=== PATIENT | male | born 1955 | race Caucasian/White ===

== ENCOUNTER → 2017-08-04 | Outpatient (CLI) | payer OTHER ==
[~2017-08-04] MED LIST: ALBUTEROL0.63 MG/3
[2017-08-04 11:01] LABS: BASOPHILS # (AUTO) 0.1 (0.0-0.1); EOSINOPHILS # (AUTO) 0.2 (0.0-0.4); EOSINOPHILS % 2.1 % (0.0-6.0); HEMATOCRIT 50.7 % (38.2-49.6); HEMOGLOBIN 16.9 g/dL (14.0-18.0); LYMPHOCYTES # (AUTO) 3.5 (1.0-3.2); LYMPHOCYTES % 33.9 % (18.0-39.1); MEAN CORPUSCULAR HEMOGLOBIN 29.9 pg (28-32); MEAN CORPUSCULAR HGB CONC 33.3 g/dL (31-35); MEAN CORPUSCULAR VOLUME 89.7 fL (81-99); MONOCYTES % 9.5 % (4.4-11.3); NEUTROPHILS # (AUTO) 5.5 (2.1-6.9); NEUTROPHILS % 53.2 % (38.7-80.0); PLATELET COUNT 250 x10e3/uL (140-360); RED BLOOD COUNT 5.65 x10e6/uL (4.3-5.7); RED CELL DISTRIBUTION WIDTH 13.7 % (11.7-14.4)
== END ==
LOC: DX 12:48 → EDSTATUS 08-16 09:00
PROVIDERS: ATTEND Internal Medicine Gastroenterology
DX: Z01.818 Encounter for other preprocedural examination (principal); Z12.11 Encounter for screening for malignant neoplasm of colon; R19.5 Other fecal abnormalities; Z53.8 Procedure and treatment not carried out for other reasons
CPT/HCPCS: 36415; 85025; 93005

== ENCOUNTER → 2017-11-01 | Day surgery (SDC) | payer OTHER ==
[~2017-11-01] MED LIST changes: +LIDOCAINE HCL 2% LOCAL INJ 5 ML SDV VIAL INJ ONE; +MELATONIN3 MG PO; +MIDAZOLAM HCL 2 MG/2 ML VIAL ONE; +ONDANSETRON HCL INJ 2 MG/ML VIAL ONE; +PROPOFOL IV EMULSION 10 MG/ML 20 ML VIAL ONE
--- OUTSIDE RECORDS SUMMARY | 2017-11-02 10:00 | XMS REPORT ---
Author Author Admin, [place] Organization [facility] Address Unknown Phone Unavailable Allergies, Adverse Reactions, Alerts Allergy Name Reaction Description Start Date Severity Status Provider KEHALINA Pt states breaks out in rash Mild Active Ehsan Mcdowell MD Conditions or Problems Problem Name Problem Code Onset Date Status Entry Date Provider Comment Standard Description Annotate Hemoccult positive stool 578.1 Active Peggy Elizondo MD Blood in stool Colon cancer screening V76.51 Active Peggy Elizondo MD Screening for malignant neoplasms of colon INSOMNIA 780.52 Active Peggy Elizondo MD Insomnia, unspecified Muscle cramp 729.82 Active Peggy Elizondo MD Cramp of limb Pneumococcal 23-valent polysaccharide vaccination given V03.82 Active Peggy Elizondo MD Need for prophylactic vaccination against Streptococcus pneumoniae [pneumococcus] Smokes cigarettes; >30 pk-yrs 305.1 Active Peggy Elizondo MD Tobacco use disorder Well adult exam V70.0 Active Peggy Elizondo MD Routine general medical examination at a health care facility COPD 496 Active Peggy Elizondo MD Chronic airway obstruction, not elsewhere classified Cough 786.2 Active Peggy Elizondo MD Cough Hepatitis C 070.70 Active Peggy Elizondo MD Unspecified viral hepatitis C without hepatic coma Actinic keratosis 702.0 Active Peggy Elizondo MD Actinic keratosis Carotid stenosis 433.10 Active Peggy Eliozndo MD Occlusion and stenosis of carotid artery, without mention of cerebral infarction Screening for hepatitis V73.89 Active Peggy Elizondo MD Screening examination for other specified viral diseases Amaurosis fugax, right 362.34 Active Peggy Elizondo MD Transient retinal arterial occlusion Elevated blood pressure 796.2 Active Peggy Elizondo MD Elevated blood pressure reading without diagnosis of hypertension Lab exam V72.6 Active Peggy Elizondo MD Laboratory examination Lipid disorder screening V77.91 Active Peggy Elizondo MD Screening for lipoid disorders Screening for diabetes mellitus V77.1 Active Peggy Elizondo MD Screening for diabetes mellitus Std screening V74.5 Active Peggy Elizondo MD Screening examination for venereal disease Bronchitis 490 Active Ehsan Mcdowell MD Bronchitis , not specified as acute or chronic BMI 23.0-23.9 Active Ehsan Mcdowell MD Body Mass Index between 19-24, adult COPD 496 Active Ehsan Mcdowell MD Chronic airway obstruction, not elsewhere classified Dyspnea 786.09 Active Ehsan Mcdowell MD Other dyspnea and respiratory abnormality Tobacco abuse 305.1 Active Ehsan Mcdowell MD Tobacco use disorder Vaccine against flu/influenza V04.8 Active Ehsan Mcdowell MD Need for prophylactic vaccination and inoculation against other viral diseases Need for prophylactic vaccination with unspecified combined vaccine V06.9 Inactive Kandice FLORESN Need for prophylactic vaccination with unspecified combined vaccine Need for prophylactic vaccination with unspecified combined vaccine ICD-V06.9 Inactive Kandice FLORESN Medication List Medication Instructions Start Date Stop Date Generic Name NDC Status Provider Patient Instruction LEVOFLOXACIN 500 MG ORAL TABLET TAKE 1 TABLET BY MOUTH EVERY DAY FOR 5 DAYS LEVOFLOXACIN 32231937739 Active Peggy Elizondo MD Active RESTORIL 15 MG ORAL CAPSULE 1 by mouth nightly at bedtime as needed for insomnia TEMAZEPAM 70250000684 Active Peggy Elizondo MD Active QVAR 40 MCG/ACT INHALATION AEROSOL SOLUTION 2 puffs twice a day BECLOMETHASONE DIPROPIONATE 21644002880 Active Peggy Elizondo MD Active IPRATROPIUM BROMIDE 0.02 % INHALATION SOLUTION 0.5 mg NEB Q 6-8 hrs. IPRATROPIUM BROMIDE 80510344741 Active Peggy Elizondo MD Active ALBUTEROL SULFATE (2.5 MG/3ML) 0.083% INHALATION NEBULIZATION SOLUTION 1 vial in nebulizer every 4-6 hours as needed ALBUTEROL SULFATE 53005168155 Active Peggy Elizondo MD Active Immunizations Vaccine Administration Date Value Standard Description PEDIATRIC PNEUMOCOCCAL VACCINE ([id number]) #1 given pneumococcal conjugate vaccine, 13 valent influenza immunization (Flu Vax) has been administered given influenza virus vaccine, unspecified formulation Vital Signs Date Name Value Unit Range Description blood pressure, diastolic 72 mm[Hg] BP zimmerman blood pressure, systolic 138 mm[Hg] BP sys height E&M 72 [in_us] Bdy height pulse rate E&M 80 /min Heart rate respiratory rate E&M 14 /min Resp rate temperature E&M 98 [degF] Body temperature weight E&M 186 [lb_av] Weight Measured blood pressure, diastolic, second observation 76 mm[Hg] BP zimmerman blood pressure, diastolic 76 mm[Hg] BP zimemrman blood pressure, systolic, second observation 127 mm[Hg] BP sys blood pressure, systolic 127 mm[Hg] BP sys height E&M 72 [in_us] Bdy height pulse rate E&M 80 /min Heart rate respiratory rate E&M 20 /min Resp rate temperature E&M 98.5 [degF] Body temperature weight E&M 192.60 [lb_av] Weight Measured blood pressure, diastolic, second observation 78 mm[Hg] BP zimmerman blood pressure, diastolic 78 mm[Hg] BP zimmerman blood pressure, systolic, second observation 121 mm[Hg] BP sys blood pressure, systolic 121 mm[Hg] BP sys height E&M 72 [in_us] Bdy height pulse rate E&M 95 /min Heart rate respiratory rate E&M 20 /min Resp rate temperature E&M 98.2 [degF] Body temperature weight E&M 197 [lb_av] Weight Measured blood pressure, diastolic 67 mm[Hg] BP zimmerman blood pressure, systolic 114 mm[Hg] BP sys height E&M 72 [in_us] Bdy height pulse rate E&M 87 /min Heart rate respiratory rate E&M 23 /min Resp rate temperature E&M 98.7 [degF] Body temperature weight E&M 176.80 [lb_av] Weight Measured blood pressure, diastolic 76 mm[Hg] BP zimmerman blood pressure, systolic 121 mm[Hg] BP sys height E&M 72 [in_us] Bdy height pulse rate E&M 87 /min Heart rate pulse rate #2 72 Heart rate respiratory rate E&M 20 /min Resp rate temperature E&M 98.5 [degF] Body temperature weight E&M 177.60 [lb_av] Weight Measured blood pressure, diastolic 63 mm[Hg] BP zimmerman blood pressure, systolic 133 mm[Hg] BP sys height E&M 72 [in_us] Bdy height pulse rate E&M 80 /min Heart rate respiratory rate E&M 20 /min Resp rate temperature E&M 97.7 [degF] Body temperature weight E&M 179 [lb_av] Weight Measured blood pressure, diastolic 92 mm[Hg] BP zimmerman blood pressure, systolic 153 mm[Hg] BP sys height E&M 72 [in_us] Bdy height pulse rate E&M 79 /min Heart rate respiratory rate E&M 18 /min Resp rate temperature E&M 97.4 [degF] Body temperature weight E&M 179 [lb_av] Weight Measured Diagnostic Results Date Name Value Unit Range Description Lab Report: Hepatitis Panel (4) - Serology hepatitis B virus core antibody, IgM, PT, serum, quantitative Negative Negative hepatitis C antibody, serum 3.2 0.0-0.9 Lab Report: CBC With Differential/Platelet, Comp. Metabolic Panel (14), ... - Hematology lymphocyte count, blood, automated 3.4 X10E3/UL 10*3/mm3 0.7- 3.1 Lab Report: CBC With Differential/Platelet, Comp. Metabolic Panel (14), ... - Chemistry urea nitrogen, blood 15 mg/dL 8-27 creatinine, serum 0.88 mg/dL 0.76-1.27 chloride, serum 103 mmol/L 96-106 Lab Report: CBC With Differential/Platelet, Comp. Metabolic Panel (14), ... - Hematology mean corpuscular volume, RBC 90 fL 79-97 Lab Report: CBC With Differential/Platelet, Comp. Metabolic Panel (14), ... - Chemistry triglyceride, serum, fasting 138 mg/dL 0-149 Lab Report: CBC With Differential/Platelet, Comp. Metabolic Panel (14), ... - Hematology erythrocyte (RBC) count 5.75 X10E6/UL 10*6/mm3 4.14-5.80 Lab Report: CBC With Differential/Platelet, Comp. Metabolic Panel (14), ... - Chemistry Estimated Glomerular Filtration Rate (calc) 93 mL/min/1.73m2 > 59 Lab Report: CBC With Differential/Platelet, Comp. Metabolic Panel (14), ... - Hematology platelet count 242 X10E3/UL 10*3/mm3 384-365 7686/01/18 red blood cell distribution width 14.8 % 12.3-15.4 Lab Report: CBC With Differential/Platelet, Comp. Metabolic Panel (14), ... - Chemistry protein, total, serum 7.2 g/dL 6.0-8.5 Lab Report: HCV RNA by PCR, Qn Rfx Malika - Serology Hepatitis C virus (HCV) RNA, PCR, quantitative HCV Not Detected IU /mL [iU]/mL Lab Report: CBC With Differential/Platelet, Comp. Metabolic Panel (14), ... - Chemistry HDL cholesterol, serum 34 mg/dL >39 albumin/globulin ratio, serum 1.6 1.2-2.2 Lab Report: CBC With Differential/Platelet, Comp. Metabolic Panel (14), ... - Hematology eosinophils as percent of blood leukocytes 3 % Not Estab. Lab Report: CBC With Differential/Platelet, Comp. Metabolic Panel (14), ... - Chemistry Absolute Neutrophils 4.7 X10E3/UL 10*3/uL 1.4-7.0 Lab Report: CBC With Differential/Platelet, Comp. Metabolic Panel (14), ... - Hematology basophil count, absolute 0.1 x10E3/uL 0.0-0.2 Lab Report: Hepatitis Panel (4) - Chemistry hepatitis B surface antigen Negative Negative Lab Report: CBC With Differential/Platelet, Comp. Metabolic Panel (14), ... - Chemistry alanine aminotransferase (SGPT), serum 35 U/L 0-44 LDL cholesterol, serum 111 mg/dL 0-99 Lab Report: CBC With Differential/Platelet, Comp. Metabolic Panel (14), ... - Hematology monocytes as percent of blood leukocytes 9 % Not Estab. Lab Report: CBC With Differential/Platelet, Comp. Metabolic Panel (14), ... - Chemistry cholesterol, serum 173 mg/dL 100-199 Lab Report: CBC With Differential/Platelet, Comp. Metabolic Panel (14), ... - Hematology mean corpuscular hemoglobin concentration, RBC 33.8 G/DL % 31.5- 35.7 hemoglobin, blood 17.6 g/dL 13.0-17.7 leukocyte count, blood 9.4 X10E3/UL 10*3/mm3 3.4-10.8 hematocrit, blood 52.0 % 37.5-51.0 Lab Report: Hepatitis Panel (4) - Serology hepatitis A antibody, IgM Negative Negative Lab Report: CBC With Differential/Platelet, Comp. Metabolic Panel (14), ... - Chemistry globulin, serum 2.8 1.5-4.5 thyroid stimulating hormone, serum 2.110 u[iU]/mL 0.450-4.500 albumin, serum 4.4 g/dL 3.6-4.8 very low density lipoproteins 28 mg/dL 5-40 calcium, serum 9.4 mg/dL 8.6-10.2 Lab Report: CBC With Differential/Platelet, Comp. Metabolic Panel (14), ... - Hematology basophils as percent of blood leukocytes 1 % Not Estab. monocyte count, blood, automated 0.8 X10E3/UL 10*3/uL 0.1-0.9 Lab Report: CBC With Differential/Platelet, Comp. Metabolic Panel (14), ... - Chemistry immature granulocytes, percentage of total cells, blood 0 % Not Estab. urea nitrogen/creatinine ratio, serum 17 10-24 Lab Report: CBC With Differential/Platelet, Comp. Metabolic Panel (14), ... - Genetics/fertility eGFR if 108 mL/min/1.73m2 >59 Lab Report: CBC With Differential/Platelet, Comp. Metabolic Panel (14), ... - Hematology lymphocytes as percent of blood leukocytes 37 % Not Estab. Lab Report: CBC With Differential/Platelet, Comp. Metabolic Panel (14), ... - Chemistry carbon dioxide, venous blood 24 mmol/L 18-29 Lab Report: CBC With Differential/Platelet, Comp. Metabolic Panel (14), ... - Serology rapid plasma reagin antibody, serum Non Reactive Non Reactive Lab Report: CBC With Differential/Platelet, Comp. Metabolic Panel (14), ... - Chemistry sodium, serum 142 mmol/L 475-573 5304/08/15 hemoglobin A1C, blood, as % of total hemoglobin 5.9 % 4.8-5.6 alkaline phosphatase, serum 96 U/L 39-117 Lab Report: CBC With Differential/Platelet, Comp. Metabolic Panel (14), ... - Hematology Eosinophil Absolute Count 0.3 X10E3/UL 10*3/uL 0.0-0.4 mean corpuscular hemoglobin, RBC 30.6 pg 26.6-33.0 Lab Report: CBC With Differential/Platelet, Comp. Metabolic Panel (14), ... - Chemistry bilirubin, serum, total 0.4 mg/dL 0.0-1.2 Lab Report: CBC With Differential/Platelet, Comp. Metabolic Panel (14), ... - Hematology neutrophils as percent of blood leukocytes 50 % Not Estab. Lab Report: CBC With Differential/Platelet, Comp. Metabolic Panel (14), ... - Chemistry blood glucose, random 106 mg/dL 65-99 potassium, serum 4.6 mmol/L 3.5-5.2 aspartate aminotransferase (SGOT), serum 22 U/L 0-40 Encounters Date Encounter Provider Code Facility 19:52:48 [employer] Est Patient Detailed - 32332 Peggy Elizondo MD CPT- 64847 [facility] 19:55:13 [employer] Est Patient Exp Problem - 13613 Peggy Elizondo MD CPT- 39054 [facility] 13:50:57 [employer] Est Patient Detailed - 07020 Peggy Elizondo MD CPT- 06063 [facility] 09:13:20 CDT Est Patient Exp Problem - 38191 Peggy Elizondo MD CPT- 84861 [facility] 08:41:39 CDT Est Patient Exp Problem - 98416 Peggy Elizondo MD CPT- 73564 [facility] 09:38:07 CDT Est Patient Exp Problem - 90392 Peggy Elizondo MD CPT- 63364 [facility] 11:35:55 CDT Est Patient Detailed - 37532 Peggy Elizondo MD CPT- 92698 [facility] 10:38:31 [employer] Est Patient Exp Problem - 56994 Ehsan Mcdowell MD CPT- 87157 [facility] 12:22:49 [employer] New Patient Detailed - 47822 Ehsan Mcdowell MD CPT- 22125 [facility] Procedures Code Procedure Name Date Entry Date Standard Description CPT-J7613 Albuterol inhalation solution 0.083 3ml 1unit 19:52:48 [employer] CPT-41276 IM or SQ Injection 19:52:48 [employer] CPT-J1100 Injection, dexamethasone sodium phosphate, 1mg 19:52:48 [employer] CPT-44634 Prevnar (PCV13) IM 08:20:28 [employer] CPT-15048 Admin of Vaccine - Injection - 1 08:20:28 [employer] CPT-66710 Est Patient Well Exam (40 - 64 Yrs) - 85554 09:42:48 [employer] CPT-02798 INFLUENZA VACCINE QUADRIVALENT 3 YRS PLUS IM 12:22:49 [employer]
--- OUTSIDE RECORDS SUMMARY | 2017-11-02 10:00 | XMS REPORT | Clinical Summary ---
Author Author [facility] Organization [facility] Address Unknown Phone Unavailable Care Team Providers Care Cashier Gambling Name Role Phone Peggy Elizondo MD PCP Allergies Active Allergy Reactions Severity Noted Date Comments Cephalexin Hives 08/26/2017 Current Medications Prescription Sig. Disp. Refills Start End Date Status Date temazepam (RESTORIL) 15 Take 15 mg by mouth. Active mg capsule albuterol sulfate Take 2.5 mg by Active (PROVENTIL) 2.5 mg/0.5 mL nebulization every 6 solution for nebulization (six) hours as needed. ipratropium-albuterol Inhale 2 puffs every 6 Active (COMBIVENT RESPIMAT) (six) hours as needed for 20-100 mcg/actuation mist wheezing. inhaler BECLOMETHASONE Inhale. Active DIPROPIONATE (QVAR INHL) levoFLOXacin (LEVAQUIN) Take 1 tablet (500 mg 5 tablet 0 08/29/19 500 MG tablet total) by mouth daily for 18 18 5 days. budesonide (PULMICORT) Take 2 mL (0.5 mg total) 60 mL 0 08/29/19 0.5 mg/2 mL nebulizer by nebulization once 18 18 solution daily for 30 days. Active Problems Problem Noted Date Hypoxia 08/28/2017 Pneumonia 08/26/2017 Emphysema of lung COPD (chronic obstructive pulmonary disease) Encounters Date Type Specialty Care Team Description 08/30/2017 Patient Quality Marcelo Leblanc, PharmD Outreach 08/26/2017 [facility] General Internal Medicine Lucy Barahona MD Pneumonia due to - Encounter Bev Bautista infectious organism, 08/29/2017 Daquan Sifuentes MD unspecified laterality, Nata Cote MD unspecified part of lung Hyun Enriquez MD (Primary Dx) after 11/01/2016 Social History Tobacco Use Types Packs/Day Years Used Date Former Smoker Smokeless Tobacco: Former User Alcohol Use Drinks/Week oz/Week Comments Yes Sex Assigned at Date Recorded Not on file Last Filed Vital Signs Vital Sign Reading Time Taken Blood Pressure 143/76 08/29/2017 10:54 AM ENVIRONMENTAL REMEDIATION ENGINEER Pulse 70 08/29/2017 11:21 AM ENVIRONMENTAL REMEDIATION ENGINEER Temperature 36.5 C (97.7 F) 08/29/2017 10:54 AM ENVIRONMENTAL REMEDIATION ENGINEER Respiratory Rate 18 08/29/2017 11:21 AM ENVIRONMENTAL REMEDIATION ENGINEER Oxygen Saturation 92% 08/29/2017 10:54 AM ENVIRONMENTAL REMEDIATION ENGINEER Inhaled Oxygen - - Concentration Weight - - Height 182.9 cm (6') 08/26/2017 9:20 AM ENVIRONMENTAL REMEDIATION ENGINEER Body Mass Index - - Plan of Treatment Health Maintenance Due Date Last Done Comments COLONOSCOPY 2007 SHINGRIX VACCINE (#1) 2007 ZOSTER VACCINE 2017 INFLUENZA VACCINE 02/08/2018 Results * XR Chest 2 Vw (08/28/2017 11:02 AM) Only the most recent of 2 results within the time period is included. Specimen Performing Laboratory [facility] [address] [place] [address] Narrative EXAMINATION: XR CHEST 2 VW CLINICAL HISTORY: Pneumonia COMPARISON: PA and lateral chest, obtained on 08/26/2017. FINDINGS: Cardiac and mediastinal silhouettes remain within normal limits. Again seen are emphysematous changes in both lungs, greatest in the upper lobes, with crowding of the bronchovascular markings inferiorly. Previously seen infiltrates are decreasing. Pleural fluid and pneumothorax are not appreciated. 17 mm nodular opacity in the left upper lobe, probably fibrosis, as seen on the previous study, is obscured by bus driver/monitor lead. IMPRESSION: Improving appearance of the chest. [facility]-[id number] Procedure Note Interface, Radiology Results Incoming - 08/28/2017 11:14 AM ENVIRONMENTAL REMEDIATION ENGINEER EXAMINATION: XR CHEST 2 VW CLINICAL HISTORY: Pneumonia COMPARISON: PA and lateral chest, obtained on 08/26/2017. FINDINGS: Cardiac and mediastinal silhouettes remain within normal limits. Again seen are emphysematous changes in both lungs, greatest in the upper lobes, with crowding of the bronchovascular markings inferiorly. Previously seen infiltrates are decreasing. Pleural fluid and pneumothorax are not appreciated. 17 mm nodular opacity in the left upper lobe, probably fibrosis, as seen on the previous study, is obscured by bus driver/monitor lead. IMPRESSION: Improving appearance of the chest. [facility]-[id number] * Estimated GFR (08/27/2017 6:01 AM) Only the most recent of 2 results within the time period is included. Component Value Ref Range GFR Non Af Amer 76 mL/min/1.73 m2 GFR Af Amer >90 mL/min/1.73 m2 Comment: Chronic kidney disease: <60 mL/min/1.73m2 Kidney failure: <15 mL/min/1.73m2 The estimated GFR is calculated from the IDMS-traceable Modification of Diet in Renal Disease Equation. The accuracy of the calculation is poor when the creatinine is normal. Calculated values >90 mL/min/1.73m2 are not reported. This equation has not been validated in children (<18 years), women, the elderly (>70 years), or ethnic groups other than Caucasians and Americans. Specimen Performing Laboratory Plasma specimen [facility] DEPARTMENT OF PATHOLOGY AND GENOMIC MEDICINE [address] [place] [address] [place] [address] * CBC with platelet and differential (08/27/2017 6:01 AM) Only the most recent of 2 results within the time period is included. Component Value Ref Range WBC 14.8 (H) 4.2 - 11.0 k/uL RBC 4.99 4.04 - 5.86 m/uL HGB 14.9 13.0 - 17.3 g/dL HCT 44.4 34.0 - 45.0 % MCV 89.0 80.0 - 98.0 fL MCH 29.9 27.0 - 34.0 pg MCHC 33.6 31.5 - 36.5 g/dL RDW - SD 43.6 37.0 - 51.0 fL MPV 10.0 7.4 - 10.4 fL Platelet count 244 150 - 400 k/uL Nucleated RBC 0.00 /100 WBC Neutrophils 88.9 (H) 36.0 - 66.0 % Lymphocytes 7.2 (L) 24.0 - 44.0 % Monocytes 3.3 0.0 - 6.0 % Eosinophils 0.0 0.0 - 6.0 % Basophils 0.1 0.0 - 1.2 % Immature granulocytes 0.5 0.0 - 1.0 % Specimen Performing Laboratory Blood [facility] DEPARTMENT OF PATHOLOGY AND GENOMIC MEDICINE [address] [place] [address] * Hemoglobin A1c (08/27/2017 6:01 AM) Component Value Ref Range Hemoglobin A1C 6.0 4.0 - 6.0 % Comment: Less than 6% - Goal of therapy for Type II Diabetes Less than 7%- Goal of therapy for Type I Diabetes Less than 8%- Acceptable control for Type I or Type II Diabetes Greater than 8%- Unacceptable control; action indicated. (A DA94) Specimen Performing Laboratory Blood [facility] DEPARTMENT OF PATHOLOGY AND GENOMIC MEDICINE [address] [place] [address] * Lipid panel (08/27/2017 6:01 AM) Component Value Ref Range Cholesterol 125 120 - 200 mg/dL Triglycerides 85 50 - 150 mg/dL HDL cholesterol 45 40 - 60 mg/dL LDL cholesterol 80Comment: Result obtained by direct LDL mg/dL measurement Lipid panel See below interpretation Comment: Total Cholesterol (mg/dL) LDL Cholesterol (mg/dL) <200 Desirable <100 Optimal 200-239 Borderline-high 100-129 Near or above optimal >=240 High 130-159 Borderline-high 160-189 High >=190 Very high HDL Cholesterol (mg/dL) Triglycerides (mg/dL) <40 Low <150 Normal >=60 High 150-199 Borderline-high 200-499 High >=500 Very high Risk Catergories that modify LDL goals. Risk Catergories LDL goal (mg/dL) CHD and CHD risk equivalent <100 (10-year risk >20%) Multiple (2+) risk factors <130 (10-year risk=<20%) 0-1 risk factors <160 (<10-year risk) Defining levels of lipids in metabolic syndrome Triglycerides >=150 mg/dL HDL Cholesterol Men <40 mg/dL Women <50 mg/dL Non-HDL cholesterol is a second target for therapy in persons with high triglycerides (>=200 mg/dL) Specimen Performing Laboratory Plasma specimen [facility] DEPARTMENT OF PATHOLOGY AND GENOMIC MEDICINE [address] [place] [address] * Basic metabolic panel (08/27/2017 6:01 AM) Component Value Ref Range Sodium 136 135 - 150 mEq/L Potassium 3.6 3.5 - 5.0 mEq/L Chloride 103 100 - 109 mEq/L CO2 22 (L) 24 - 32 mmol/L Anion gap 11 7 - 15 mEq/L Comment: Starting from October , anion gap calculation no longer incorporates potassium. Please note the change. BUN 16 7 - 18 mg/dL Creatinine 1.0 0.8 - 1.5 mg/dL Glucose 250 (H) 65 - 100 mg/dL Calcium 8.1 (L) 8.6 - 10.7 mg/dL Specimen Performing Laboratory Plasma specimen [facility] DEPARTMENT OF PATHOLOGY AND GENOMIC MEDICINE [address] [place] [address] * Troponin (08/27/2017 12:38 AM) Only the most recent of 5 results within the time period is included. Component Value Ref Range Troponin <0.01 0.00 - 0.60 ng/mL Comment: 0.11 - 1.49 ng/ml May indicate increased risk of acute coronary syndrome. >=1.5 ng/ml Consistent with acute myocardial infarction. The diagnostic value of a single normal or non-diagnostic result is questionable. Serial samples at 2-6 hour intervals are required to rule out acute myocardial injury. Specimen Performing Laboratory Plasma specimen [facility] DEPARTMENT OF PATHOLOGY AND GENOMIC MEDICINE [address] [place] [address] * ECG ED Preliminary Interpretation - NOT AN ORDER (08/26/2017 6:09 PM) Bertin Barahona MD 08/26/20176:09 PM ECG ED Preliminary Interpretation - Not an Order Performed by: LUCY BARAHONA Authorized by: LUCY BARAHONA ECG reviewed by ED Physician in the absence of a geological drafter: yes Previous ECG: Previous ECG:Compared to current Interpretation: Interpretation: normal Rate: ECG rate:102 ECG rate assessment: normal Rhythm: Rhythm: sinus rhythm Ectopy: Ectopy: none QRS: QRS axis:Normal Conduction: Conduction: normal ST segments: ST segments:Normal T waves: T waves: normal * Blood culture, aerobic & anaerobic (08/26/2017 3:12 PM) Only the most recent of 2 results within the time period is included. Component Value Ref Range Blood culture isolate No growth after 5 days of incubation. Comment: Specimen Information Specimen Source: Blood Specimen Site: Peripheral Arm Left Specimen Performing Laboratory Blood [facility] DEPARTMENT OF PATHOLOGY AND [address] [address] * Respiratory pathogen panel (08/26/2017 10:18 AM) Component Value Ref Range Respiratory pathogen Negative for all pathogens tested: panel Negative for Adenovirus Negative for Coronavirus HKU1 Negative for Coronavirus NL63 Negative for Coronavirus 229E Negative for Coronavirus OC43 Negative for Human Metapneumovirus Negative for Rhinovirus/Enterovirus Negative for Influenza A Negative for Influenza A/H1 Negative for Influenza A/H3 Negative for Influenza A/H1-2009 Negative for Influenza B Negative for Parainfluenza Virus 1 Negative for Parainfluenza Virus 2 Negative for Parainfluenza Virus 3 Negative for Parainfluenza Virus 4 Negative for Respiratory Syncytial Virus Negative for Bordetella pertussis Negative for Chlamydophila pneumoniae Negative for Mycoplasma pneumoniae This real-time PCR assay detects the presence of nucleic acids (RNA or DNA) for the respiratory pathogens listed. A result of "Not-detected" does not exclude the possibility of the presence of one or more pathogens at concentrations less than the detectable limits of the assay. Comment: Specimen Information Specimen Source: Nasopharyngeal Specimen Site: swab Specimen Performing Laboratory Nasopharyngeal [facility] DEPARTMENT OF PATHOLOGY AND [address] [address] * Influenza antigen (08/26/2017 10:18 AM) Component Value Ref Range Influenza antigen Negative for Influenza A/B antigen. Comment: Specimen Information Specimen Source: Nares Specimen Site: Right Specimen Performing Laboratory Nares - Right [facility] DEPARTMENT OF PATHOLOGY AND GENOMIC MEDICINE [place] [address] * B natriuretic peptide (08/26/2017 9:50 AM) Component Value Ref Range BNP 13 0 - 100 pg/mL Specimen Performing Laboratory Blood [facility] DEPARTMENT OF PATHOLOGY AND GENOMIC MEDICINE [place] [address] * Comprehensive metabolic panel (08/26/2017 9:50 AM) Component Value Ref Range Sodium 135 135 - 150 mEq/L Potassium 4.0 3.5 - 5.0 mEq/L Chloride 100 100 - 109 mEq/L CO2 31 24 - 32 mmol/L Anion gap 4 (L) 7 - 15 mEq/L Comment: Starting from October , anion gap calculation no longer incorporates potassium. Please note the change. BUN 12 7 - 18 mg/dL Creatinine 1.1 0.8 - 1.5 mg/dL Glucose 100 65 - 100 mg/dL Calcium 8.9 8.6 - 10.7 mg/dL Protein 8.7 (H) 6.3 - 8.2 g/dL Albumin 3.7 3.2 - 5.0 g/dL A/G ratio 0.7 0.7 - 3.8 Alkaline phosphatase 97 30 - 120 U/L AST 15 15 - 37 U/L ALT 28 (L) 30 - 65 U/L Total bilirubin 1.0 0.2 - 1.2 mg/dL Specimen Performing Laboratory Plasma specimen [facility] DE[facility]MENT OF PATHOLOGY AND GENOMIC MEDICINE [address] [place] [address] * ECG 12 lead (08/26/2017 9:30 AM) Component Value Ref Range Ventricular rate 102 Atrial rate 102 NE interval 132 QRSD interval 94 QT interval 342 QTC interval 445 P axis 1 85 QRS axis 1 92 T wave axis 59 EKG impression Sinus tachycardia with premature atrial complexes-Right atrial enlargement-Rightward axis-Pulmonary disease pattern-Abnormal ECG-- Specimen Performing Laboratory [facility] [address] [place] [address] after 11/01/2016 Insurance Payer Benefit Subscriber ID Type Phone Address Plan / Group [employer] EX[employer]ANGE L[employer]Z xxxxxxxxxx [employer] [place] [address]
== END | disposition home or self-care (01) ==
LOC: OR 10:30
PROVIDERS: ATTEND Internal Medicine Gastroenterology
DX: Z12.11 Encounter for screening for malignant neoplasm of colon (principal); D12.2 Benign neoplasm of ascending colon; D12.3 Benign neoplasm of transverse colon; D12.4 Benign neoplasm of descending colon; K64.8 Other hemorrhoids; R19.5 Other fecal abnormalities; K21.9 Gastro-esophageal reflux disease without esophagitis; J44.9 Chronic obstructive pulmonary disease, unspecified; G47.00 Insomnia, unspecified; B19.20 Unspecified viral hepatitis C without hepatic coma; F17.210 Nicotine dependence, cigarettes, uncomplicated; Z88.1 Allergy status to other antibiotic agents; Z01.810 Encounter for preprocedural cardiovascular examination; Z79.82 Long term (current) use of aspirin; Z87.01 Personal history of pneumonia (recurrent)
CPT/HCPCS: 45381; 45384; 45385; 93005; J2001; J2250; J2405; 45378